=== PATIENT | male | born 1970 | race Caucasian/White ===

== ENCOUNTER 2017-08-09 16:15 | Emergency (ER) | payer SELFPAY ==
[2017-08-09 16:20] VITALS: TEMP 98; BMI 28.3
--- NOTE | 2017-08-09 16:29 | PDOC ---
History of Present Illness - General History Source: Patient Exam Limitations: No Limitations - History of Present Illness Initial Comments: 08/09/17 17:37 47 yo m with no PMHx presents for 3 days of non-reproducible chest and thoracic back pain. States pain is constant, not positional, nothing makes it better or worse and he has not tried any intervention. Reports having similar event last year where he was seen here in ED. 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 He denies any trauma, sob , diaphoresis, radiation of pain, fevers, chills, n/v/d/c. 08/09/17 18:03 Timing/Duration: other (3 days) Severity: mild Modifying Factors: worse with: movement, rest Associated Symptoms: reports: chest pain, weakness. denies: cough, diaphoresis , fever/chills, headaches, malaise, nausea/vomiting, shortness of breath <Ana Carbajal - Last Filed: 08/09/17 19:41> <Reva Rasmussen - Last Filed: 08/10/17 04:10> - General Chief Complaint: Chest Pain Stated Complaint: BLOOD PRESSURE Time Seen by Provider: 08/09/17 16:29 Past History - Travel Traveled outside of the country in the last 30 days: No Close contact w/someone who was outside of country & ill: No - Past Medical History COPD: No Other medical history: NONE - Suicide/Smoking/Psychosocial Hx Smoking History: Former smoker Have you smoked in the past 12 months: No If you are a former smoker, when did you quit?: 10 Information on smoking cessation initiated: No Hx Alcohol Use: No Drug/Substance Use Hx: No Substance Use Type: None <Ana Carbajal - Last Filed: 08/09/17 19:41> <Reva Rasmussen - Last Filed: 08/10/17 04:10> - Past Medical History Allergies/Adverse Reactions: Allergies Allergy/AdvReac Type Severity Reaction Status Date / Time No Known Allergies Allergy Verified 08/09/17 16:20 Home Medications: Ambulatory Orders NK [No Known Home Medication] 08/09/17 Review of Systems - Review of Systems Able to Perform ROS?: Yes Is the patient limited Faroese proficient: No Constitutional: Yes: Weakness. No: Chills, Diaphoresis, Fever, Loss of Appetite HEENTM: No: Blurred Vision, Recent change in vision Respiratory: No: Cough, Orthopnea, Shortness of Breath, SOB with Exertion, Wheezing, Productive cough Cardiac (ROS): Yes: Chest Pain. No: Irregular Heart Rate, Lightheadedness, Palpitations, Syncope ABD/GI: No: Abdominal Distended, Constipated, Diarrhea, Nausea, Vomiting Musculoskeletal: Yes: Back Pain, Neck Pain Neurological: Yes: Weakness (B/L hands). No: Headache, Numbness, Paresthesia, Tingling <Ana Carbajal - Last Filed: 08/09/17 19:41> *Physical Exam - Vital Signs Last Vital Signs Temp Pulse Resp BP Pulse Ox 98.0 F 90 20 136/87 99 08/09/17 16:16 08/09/17 16:16 08/09/17 16:16 08/09/17 16:16 08/09/17 16:16 - Physical Exam General Appearance: Yes: Nourished, Appropriately Dressed. No: Apparent Distress HEENT: positive: Normal ENT Inspection, Pharynx Normal. negative: Pharyngeal Erythema, Tonsillar Exudate, Tonsillar Erythema, Nasal Congestion, Rhinorrhea Neck: positive: Tender lateral. negative: Decreased range of motion, Tender midline Respiratory/Chest: positive: Lungs Clear, Normal Breath Sounds. negative: Chest Tender, Respiratory Distress, Accessory Muscle Use, Crackles, Rales, Stridor, Wheezing Cardiovascular: positive: Regular Rhythm, Regular Rate, S1, S2. negative: Edema Gastrointestinal/Abdominal: positive: Normal Bowel Sounds, Soft. negative: Tender, Tenderness Musculoskeletal: positive: Normal Inspection. negative: CVA Tenderness Extremity: positive: Normal Inspection, Normal Range of Motion Integumentary: positive: Normal Color, Warm Neurologic: positive: casting cleaner II-XII NML intact, Fully Oriented, Alert, Normal Mood/ Affect, Normal Response, Motor Strength 5/5 <Ana Carbajal - Last Filed: 08/09/17 19:41> - Vital Signs Last Vital Signs Temp Pulse Resp BP Pulse Ox 98.0 F 90 20 136/87 99 08/09/17 16:16 08/09/17 16:16 08/09/17 16:16 08/09/17 16:16 08/09/17 16:16 <Reva Rasmussen - Last Filed: 08/10/17 04:10> Heart Score/ECG Review - History History: Slightly suspicious - Electrocardiogram EKG: Normal - Risk Factors Risk Factors Heart Score: Yes Hx Hypercholesterolemia, Yes Smoking History Based on the list above the patient has:: 1-2 risk factors - Troponin Troponin: </= normal limit - ECG Intrepretation Rhythm: Regular Rhythm (nsr at 78 nl axis) Comment:: 08/09/17 18:05 nsr at 78 nl axis <Ana Carbajal - Last Filed: 08/09/17 19:41> ED Treatment Course - LABORATORY CBC & Chemistry Diagram: 08/09/17 17:00 08/09/17 17:00 <Ana Carbajal - Last Filed: 08/09/17 19:41> - LABORATORY CBC & Chemistry Diagram: 08/09/17 17:00 08/09/17 17:00 - ADDITIONAL ORDERS Additional order review: Laboratory Results 08/09/17 08/09/17 08/09/17 18:05 17:00 17:00 D-Dimer < 200 Sodium 138 Potassium 3.6 Chloride 104 Carbon Dioxide 27 Anion Gap 7 L BUN 18 D Creatinine 0.9 D Creat Clearance w eGFR > 60 Random Glucose 139 H D Calcium 8.9 Total Bilirubin 0.9 AST 23 D ALT 42 D Alkaline Phosphatase 80 D Creatine Kinase 111 Troponin I < 0.02 Total Protein 7.4 Albumin 3.9 08/09/17 17:00 RBC 4.96 MCV 82.3 MCHC 32.8 RDW 13.4 MPV 11.8 H Neutrophils % 69.0 Lymphocytes % 21.1 D Monocytes % 7.3 Eosinophils % 2.3 Basophils % 0.3 - Medications Given in the ED: ED Medications Discontinued Medications Generic Name Dose Route Start Last Admin Trade Name Freq PRN Reason Stop Dose Admin Albuterol/Ipratropium 1 amp 08/09/17 18:01 08/09/17 18:25 Duoneb - NEB 08/09/17 18:02 1 amp ONCE ONE Administration <Reva Rasmussen - Last Filed: 08/10/17 04:10> Medical Decision Making - Medical Decision Making 08/09/17 18:08 Pt with ac/o chest pain not typocal for chest pain Pt with similar event last year that responded to proventil inhaler, pt did not f/u with any providers. Pt quit smoking 10 yrs ago and drinking 3 yrs ago. Pt says he has a remote history of elevated cholesterol in the past not on meds. Pt has a negative troponin and nl ekg will add d-dimer to todays lab ,give combivent treatment and reevaluate. Pt may have some type of reactive airway disease, low suspicion for pulmonary embolism ,pt also c/o a lot of stress at work, symptoms may be related to stress. 08/09/17 19:42 Pt with nl labs , nl ekg pt says he is breathing normally after one breathing treatment, pt had similar experience in the past one year ago treated with breathing treatments for chest tightrness and discharged home but failed to f/u with pcp. PT also reports being checked for asthma 20 years ago but told he does not have asthma. Pt may have some type of reactive airway disease. PT is stable for dc home with out pt f/u with pcp , pt to use proventil inhaler prn for chest tightness, pt to return to ed for chest pain associated with nausea and vomiting or as needed. PT agreed with this dc plan, Case endorsed to Dr Rasmussen to make final disposition after d dimer results <Ana Carbajal - Last Filed: 08/09/17 19:41> - Medical Decision Making 08/10/17 04:09 I received pt on sinout. Workup is normal. Pt feels well. 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 Supports his and 3 sons. We had a log conversation and pt thinks that his pains are due to stress and emotional worries. Pt will follow with cardiology outpatient to r/o cardiac cause of illness. <Reva Rasmussen - Last Filed: 08/10/17 04:10> *DC/Admit/Observation/Transfer - Discharge Dispostion Admit: No <Ana Carbajal - Last Filed: 08/09/17 19:41> - Discharge Dispostion Admit: No <Reva Rasmussen - Last Filed: 08/10/17 04:10> Diagnosis at time of Disposition: Atypical chest pain - Discharge Dispostion Disposition: HOME Condition at time of disposition: Stable - Referrals Referrals: Rudi Tran MD [Staff Physician] - - Patient Instructions Printed Discharge Instructions: DI for Atypical Chest Pain - Post Discharge Activity Forms/Work/School Notes: Back to Work
[2017-08-09 17:16] LABS: BASOPHIL 0.3 % (0-2.0); EOSINOPHIL 2.3 % (0-4.5); MCHC 32.8 g/dl (32.0-35.9); MEAN CELL VOLUME 82.3 fl (80-96); MEAN PLT VOLUME 11.8 fl (7.5-11.1); PLATELET COUNT 135 K/MM3 (134-434); RDW 13.4 % (11.9-15.9); WHITE BLOOD COUNT 8.1 K/mm3 (4.0-10.0)
[2017-08-09 17:42] LABS: ALBUMIN 3.9 g/dl (3.4-5.0); ANION GAP 7 (8-16); BILIRUBIN,TOTAL 0.9 mg/dL (0.2-1.0); CALCIUM 8.9 mg/dL (8.5-10.1); CO2 27 mmol/L (21-32); CREATININE 0.9 mg/dL (0.7-1.3); GLUCOSE,RANDOM 139 mg/dL (74-106); SGOT/AST 23 U/L (15-37); SGPT/ALT 42 U/L (12-78); TOT PROT 7.4 g/dl (6.4-8.2)
[2017-08-09 17:43] LABS: ALK PHOS 80 U/L (45-117); CPK 111 IU/L (39-308); TROPONIN I < 0.02 ng/ml (0.00-0.05)
[2017-08-09] MEDS ORDERED: ALBUTEROL SO4 2.5/IPRATROPIUM 0.5 INH SOL 3 ML VIAL.NEB. NEB ONE ×2 (18:01→18:19)
[2017-08-09 19:57] VITALS: BP 120/65; PULSE 70
--- NOTE | 2017-08-11 09:53 | EKG ---
Test Reason : Blood Pressure : / mmHG Vent. Rate : 078 BPM Atrial Rate : 078 BPM P-R Int : 174 ms QRS Dur : 088 ms QT Int : 368 ms P-R-T Axes : 067 063 046 degrees QTc Int : 419 ms NORMAL SINUS RHYTHM NORMAL ECG WHEN COMPARED WITH ECG OF 30-MAY-2016 19:06, NO SIGNIFICANT CHANGE WAS FOUND Confirmed by PRETTY ROMO MD ([id number]) on 08/11/2017 9:53:09 AM Referred By: Confirmed By:PRETTY ROMO MD
== END 2017-08-09 19:57 | disposition home or self-care (01) ==
LOC: JER 16:15
PROC: 3E0F7GC Introduction of Other Therapeutic Substance into Respiratory Tract, Via Natural or Artificial Opening (ICD-10-PCS; principal; 2017-08-09)
DX: R07.89 Other chest pain (principal); Z56.3 Stressful work schedule; E78.00 Pure hypercholesterolemia, unspecified
CPT/HCPCS: 36415; 80053; 82550; 84484; 85025; 85379; 93005; 93010; 99283-25

== ENCOUNTER 2017-12-25 14:29 | Emergency (ER) | payer OTHER ==
--- NOTE | 2017-12-25 15:02 | PDOC ---
Rapid Medical Evaluation Chief Complaint: Pain Time Seen by Provider: 12/25/17 14:58 Medical Evaluation: Allergies Allergy/AdvReac Type Severity Reaction Status Date / Time No Known Allergies Allergy Verified 08/09/17 16:20 12/25/17 14:59 I have performed a brief in-person evaluation of this patient. The patient presents with a chief complaint of: low abdominal pain x 2 days, denies f/c/n/v/d, burning with urinationg Pertinent physical exam findings: well appearing I have ordered the following: ua/ucx/ct/gc The patient will proceed to the ED for further evaluation. Discharge Disposition - Diagnosis Suprapubic abdominal pain - Referrals - Patient Instructions - Post Discharge Activity
[2017-12-25 15:03] VITALS: BP 125/68; PULSE 71; TEMP 97.9; BMI 28.6
[2017-12-25 15:33] LABS: URINE APPEARANCE CLEAR; URINE BILIRUBIN NEGATIVE (<2.0 mg/dL); URINE BLOOD NEGATIVE (NEGATIVE); URINE COLOR STRAW; URINE GLUCOSE (UA) NEGATIVE (NEGATIVE); URINE KETONE NEGATIVE (NEGATIVE); URINE LEUK ESTERASE NEGATIVE (NEGATIVE); URINE NITRITE NEGATIVE (NEGATIVE); URINE PROTEIN NEGATIVE (NEGATIVE); URINE UROBILINOGEN NEGATIVE mg/dL (0.2-1.0)
--- NOTE | 2017-12-25 16:06 | PDOC ---
History of Present Illness - General Chief Complaint: Pain Stated Complaint: ABD PAIN Time Seen by Provider: 12/25/17 14:58 History Source: Patient Exam Limitations: No Limitations - History of Present Illness Travel History: No Initial Comments: 12/25/17 16:01 This is a 47-year-old male without significant past medical history presents to the emergency department with suprapubic pain for 3 days. Patient states he wakes up 2-3 times overnight over these past 3 days to void. He reports having occasional dysuria and a tingling at the urinary meatus after voiding. He denies any flank pain or perineal pain. Patient states she's been in a 20 year monogamous relationship and is having unprotected vaginal sex with his . He denies any rectal trauma or anal sex. He denies any fevers, chills, nausea, vomiting, diarrhea, hematuria, rectal bleeding. Past History - Past Medical History Allergies/Adverse Reactions: Allergies Allergy/AdvReac Type Severity Reaction Status Date / Time No Known Allergies Allergy Verified 12/25/17 15:03 Home Medications: Ambulatory Orders Ciprofloxacin [Cipro -] 500 mg PO Q12H #28 tablet 12/25/17 COPD: No Hypercholesterolemia: Yes - Suicide/Smoking/Psychosocial Hx Smoking History: Never smoked Have you smoked in the past 12 months: No If you are a former smoker, when did you quit?: 10 Information on smoking cessation initiated: No Hx Alcohol Use: No Drug/Substance Use Hx: No Substance Use Type: None Review of Systems - Review of Systems Able to Perform ROS?: Yes Constitutional: No: Symptoms Reported HEENTM: No: Symptoms Reported Respiratory: No: Symptoms reported Cardiac (ROS): No: Symptoms Reported ABD/GI: No: Symptoms Reported : Yes: See HPI Musculoskeletal: No: Symptoms Reported Integumentary: No: Symptoms Reported Neurological: No: Symptoms reported Endocrine: No: Symptoms Reported Hematologic/Lymphatic: No: Symptoms Reported *Physical Exam - Vital Signs Last Vital Signs Temp Pulse Resp BP Pulse Ox 97.9 F 71 18 125/68 100 12/25/17 14:58 12/25/17 14:58 12/25/17 14:58 12/25/17 14:58 12/25/17 14:58 - Physical Exam General Appearance: Yes: Appropriately Dressed. No: Apparent Distress HEENT: positive: Normal ENT Inspection Neck: positive: Trachea midline, Supple Respiratory/Chest: positive: Lungs Clear, Normal Breath Sounds. negative: Respiratory Distress, Accessory Muscle Use Cardiovascular: positive: Regular Rhythm, Regular Rate. negative: Murmur Gastrointestinal/Abdominal: positive: Normal Bowel Sounds, Soft. negative: Tender Male Genitalia: positive: normal genitalia, other (Prostate edema present. Normal rectal tone present). negative: testicular tenderness, testicular mass, epididymus tender, inguinal hernia, CVAT, hematuria Musculoskeletal: positive: Normal Inspection. negative: CVA Tenderness Extremity: positive: Normal Inspection, Normal Range of Motion Integumentary: positive: Normal Color, Dry, Warm Neurologic: positive: Alert, Normal Response, Motor Strength 5/5 ED Treatment Course - ADDITIONAL ORDERS Additional order review: Laboratory Results 12/25/17 15:20 Urine Color Straw Urine Appearance Clear Urine pH 6.0 Ur Specific [place] 1.006 Urine Protein Negative Urine Glucose (UA) Negative Urine Ketones Negative Urine Blood Negative Urine Nitrite Negative Urine Bilirubin Negative Urine Urobilinogen Negative Ur Leukocyte Esterase Negative Medical Decision Making - Medical Decision Making 12/25/17 16:03 A/P: 47 old male with 3 days of suprapubic pain and intermittent dysuria Suprapubic tenderness present. Uncircumcised penis without any balanitis present. No discharge from the urinary meatus present. Cremasteric reflex present bilaterally. No testicular erythema or tenderness present. No inguinal hernia present Prostate within normal size but slightly edematous. Acute prostatitis We'll treat with Cipro 500 mg twice a day for the next 14 days with urology follow-up if symptoms do not improve *DC/Admit/Observation/Transfer Diagnosis at time of Disposition: Prostatitis, acute - Discharge Dispostion Disposition: HOME Condition at time of disposition: Stable Admit: No - Prescriptions Prescriptions: Ciprofloxacin [Cipro -] 500 mg PO Q12H #28 tablet - Referrals Referrals: Bowen Huizar MD [Staff Physician] - - Patient Instructions Printed Discharge Instructions: DI for Acute Prostatitis Additional Instructions: You have been given a phone number for urologist. Please follow-up in the next 10 days if symptoms are not improved. Avoid eating spicy foods and alcohol until symptoms improve. Take Cipro 500 mg twice a day for the next 14 days. They should finish all of her medications even if you feel better. Take Tylenol or Motrin for fever and/or pain. Return to emergency department for fevers, worsening pain, burning with urination, penile discharge or any other concerns. - Post Discharge Activity
== END 2017-12-25 16:18 | disposition home or self-care (01) ==
LOC: JERFT 14:29
DX: N41.0 Acute prostatitis (principal); E78.00 Pure hypercholesterolemia, unspecified
CPT/HCPCS: 36415; 81003; 87086; 87491; 87591; 99281-25

== ENCOUNTER 2018-10-31 12:01 | Emergency (ER) | payer SELFPAY ==
[2018-10-31 12:05] VITALS: BP 134/75; PULSE 79; TEMP 97.9; BMI 28.3
[2018-10-31] MEDS ORDERED: MAG HYDROX/AL HYDROX/SIMETH 30 ML UNIT-DOSE CUP PO ONE (13:25)
[2018-10-31] MEDS ORDERED: RANITIDINE HCL 150 MG TABLET (FP) PO ONE (13:25)
[2018-10-31] MEDS ORDERED: RANITIDINE HCL 150 MG TABLET (FP) ONE (13:30)
[2018-10-31] MEDS ORDERED: MAG HYDROX/AL HYDROX/SIMETH 30 ML UNIT-DOSE CUP ONE (13:30)
--- NOTE | 2018-10-31 13:30 | PDOC ---
History of Present Illness - General Chief Complaint: Pain Stated Complaint: ABD PAIN Time Seen by Provider: 10/31/18 12:54 History Source: Patient - History of Present Illness Timing/Duration: reports: intermittent Past History - Past Medical History Allergies/Adverse Reactions: Allergies Allergy/AdvReac Type Severity Reaction Status Date / Time No Known Allergies Allergy Verified 10/31/18 12:05 Home Medications: Ambulatory Orders NK [No Known Home Medication] 10/31/18 COPD: No Hypercholesterolemia: Yes - Suicide/Smoking/Psychosocial Hx Smoking History: Never smoked Have you smoked in the past 12 months: No If you are a former smoker, when did you quit?: 10 Hx Alcohol Use: No Drug/Substance Use Hx: No Substance Use Type: None Review of Systems - Review of Systems Constitutional: No: Fever ABD/GI: No: Blood Streaked Bowels, Diarrhea, Nausea, Rectal Bleeding, Vomiting, Tarry Stools : No: Burning, Dysuria, Discharge, Flank Pain, Hematuria, Testicular Mass, Testicular Swelling, Testicular Pain *Physical Exam - Vital Signs Last Vital Signs Temp Pulse Resp BP Pulse Ox 97.9 F 79 18 134/75 99 10/31/18 12:02 10/31/18 12:02 10/31/18 12:02 10/31/18 12:02 10/31/18 12:02 - Physical Exam General Appearance: Yes: Appropriately Dressed. No: Apparent Distress HEENT: positive: Normal Voice Neck: positive: Supple Respiratory/Chest: negative: Respiratory Distress Gastrointestinal/Abdominal: positive: Normal Bowel Sounds, Soft. negative: Tender, Distended, Guarding, Rebound Musculoskeletal: negative: CVA Tenderness Integumentary: positive: Dry, Warm Neurologic: positive: Fully Oriented, Alert, Normal Mood/Affect Moderate Sedation - Procedure Monitoring Vital Signs: Procedure Monitoring Vital Signs Temperature 97.9 F 10/31/18 12:02 Pulse Rate 79 10/31/18 12:02 Respiratory Rate 18 10/31/18 12:02 Blood Pressure 134/75 10/31/18 12:02 O2 Sat by Pulse Oximetry (%) 99 10/31/18 12:02 ED Treatment Course - LABORATORY CBC & Chemistry Diagram: 10/31/18 13:35 10/31/18 13:35 Medical Decision Making - Medical Decision Making 10/31/18 13:21 48 yo male, no pmhx, here w/ intermittent, burning, mid lower abdominal pain with bloating 3 days. States symptoms since improved. No change in bowel movements, melena, BRBPR, dysuria, hematuria, discharge, testicular pain, swelling, nausea, vomiting, fever or chills. No history of similar episode See exam Possibly gastritis, no ttp on exam to suggest appy or diverticulitis, unlikely biliary source, pancreatitis, renal colic or aortic pathologyStable and well latoya w/ benign abd -trial of GI cocktail -labs -reassess 10/31/18 15:06 LFTs very mildly elevated including Tbili of 1.8. Patient has no known history of liver disease, etoh abuse and denies excessive tylenol use or recent travel. Ultrasound read as possible fatty liver with no gallstone or other acute pathology seen. Patient remains pain-free at this time and stable for discharge to follow-up with PMD *DC/Admit/Observation/Transfer Diagnosis at time of Disposition: Abdominal pain Qualifiers: Abdominal location: unspecified location Qualified Code(s): R10.9 - Unspecified abdominal pain - Discharge Dispostion Disposition: HOME Condition at time of disposition: Good - Referrals Referrals: Brian Munoz MD [Primary Care Provider] - - Patient Instructions Printed Discharge Instructions: DI for Abdominal Pain-Adult Additional Instructions: The cause of your abdominal pain is unclear at this time. Your labs and ultrasound were unremarkable. If symptoms worsen, return to ER Otherwise follow-up with your PMD - Post Discharge Activity
[2018-10-31 13:40] LABS: BASO % 0.4 % (0-2.0); EOS % 3.9 % (0-4.5); HEMATOCRIT 43.3 % (35.4-49); HEMOGLOBIN 14.9 GM/dL (11.7-16.9); LYMPH % 26.6 % (8-40); MCH 29.3 pg (25.7-33.7); MCHC 34.4 g/dl (32.0-35.9); MEAN CELL VOLUME 85.1 fl (80-96); MONO % 9.1 % (3.8-10.2); PLATELET COUNT 129 K/MM3 (134-434); RBC 5.09 M/mm3 (4.00-5.60); RDW 13.4 % (11.9-15.9); URINE APPEARANCE CLEAR; URINE BILIRUBIN NEGATIVE (<2.0 mg/dL); URINE COLOR YELLOW; URINE GLUCOSE (UA) NEGATIVE (NEGATIVE); URINE KETONE NEGATIVE (NEGATIVE); URINE LEUK ESTERASE NEGATIVE (NEGATIVE); URINE NITRITE NEGATIVE (NEGATIVE); URINE PROTEIN NEGATIVE (NEGATIVE); WHITE BLOOD COUNT 6.8 K/mm3 (4.0-10.0)
[2018-10-31 13:58] LABS: ALBUMIN 4.1 g/dl (3.4-5.0); ALK PHOS 80 U/L (45-117); ANION GAP 4 MMOL/L (8-16); BILIRUBIN,TOTAL 1.8 mg/dL (0.2-1); BLOOD UREA NITROGEN 16 mg/dL (7-18); CALCIUM 9.3 mg/dL (8.5-10.1); CHLORIDE 104 mmol/L (98-107); CO2 29 mmol/L (21-32); CREATININE 0.9 mg/dL (0.55-1.3); GLUCOSE,RANDOM 89 mg/dL (74-106); LIPASE 99 U/L (73-393); SGOT/AST 62 U/L (15-37); SGPT/ALT 94 U/L (13-61); SODIUM 137 mmol/L (136-145); TOT PROT 8.1 g/dl (6.4-8.2)
== END 2018-10-31 15:16 | disposition home or self-care (01) ==
LOC: JER 12:01
DX: R10.9 Unspecified abdominal pain (principal); E78.00 Pure hypercholesterolemia, unspecified
CPT/HCPCS: 36415; 76705-TC; 80053; 81003; 83690; 85025; 99282-25

== ENCOUNTER 2019-02-06 14:37 | Inpatient (IN) | payer OTHER ==
[2019-02-06 14:50] VITALS: BMI 27.4
[2019-02-06] MEDS ORDERED: MAG HYDROX/AL HYDROX/SIMETH 30 ML UNIT-DOSE CUP PO ONE (15:55)
[2019-02-06] MEDS ORDERED: ACETAMINOPHEN 1000 MG/100 ML VIAL (NON FORMULARY) IVPB ONE (15:55)
[2019-02-06] MEDS ORDERED: FAMOTIDINE 20 MG/50 ML IVPB 20 MG/50 ML MG IVPB ONE ×2 (15:57→16:10)
--- NOTE | 2019-02-06 16:02 | PDOC ---
History of Present Illness - General Chief Complaint: Pain, Acute Stated Complaint: ABD PAIN Time Seen by Provider: 02/06/19 15:18 History Source: Patient Exam Limitations: Clinical Condition - History of Present Illness Initial Comments: 02/06/19 15:41 Patient with no significant past medical history present with complaint of five- day history of persistent pruritic in right lower quadrant pain which he believes feels like gas pain. Patient reported intermittent bloating which improves when he passes gas or burps. Patient described pain as cramping pain to suprapubic region and right lower quadrant. Denies nausea, vomiting, diarrhea or constipation. he denies urinary frequency, dysuria or burning with urination. Denies testicular pain or swelling. Denies fever or chills. Denies any other symptoms Timing/Duration: other (5 days) Past History - Past Medical History Allergies/Adverse Reactions: Allergies Allergy/AdvReac Type Severity Reaction Status Date / Time No Known Allergies Allergy Verified 10/31/18 12:05 Home Medications: Ambulatory Orders Famotidine [Pepcid] 40 mg PO DAILY #7 tablet 02/06/19 Polyethylene Glycol 3350 [Miralax (For Daily Use) -] 17 gm PO DAILY #1 bottle Simethicone [Phazyme] 180 mg PO Q8H PRN #20 capsule 02/06/19 COPD: No Hypercholesterolemia: Yes - Immunization History Immunization Up to Date: No - Suicide/Smoking/Psychosocial Hx Smoking History: Never smoked Have you smoked in the past 12 months: No If you are a former smoker, when did you quit?: 10 Information on smoking cessation initiated: No Hx Alcohol Use: No Drug/Substance Use Hx: No Substance Use Type: None Review of Systems - Review of Systems Able to Perform ROS?: Yes Is the patient limited Sinhala proficient: No Constitutional: No: Chills, Fever, Malaise HEENTM: No: Symptoms Reported Respiratory: No: Symptoms reported Cardiac (ROS): No: Symptoms Reported ABD/GI: Yes: See HPI, Abdominal cramping (suprapbic and RLQ pain). No: Symptoms Reported, Abdominal Distended, Abd. Pain w/ defecation, Blood Streaked Bowels, Diarrhea, Difficulty Swallowing, Nausea, Poor Fluid Intake, Rectal Bleeding, Vomiting, Tarry Stools : No: Burning, Frequency, Urgency All Other Systems: Reviewed and Negative *Physical Exam - Vital Signs Last Vital Signs Temp Pulse Resp BP Pulse Ox 97.9 F 83 18 121/71 98 02/06/19 14:48 02/06/19 14:48 02/06/19 14:48 02/06/19 14:48 02/06/19 14:48 - Physical Exam Comments: 02/06/19 16:00 GENERAL: Well developed, well nourished. Awake and alert. No acute distress. HEENT: Normocephalic, atraumatic. PERRLA, EOMI. No conjunctival pallor. Sclera are non-icteric. Moist mucous membranes. Oropharynx is clear. NECK: Supple. Full ROM. CARDIOVASCULAR: Regular rate and rhythm. No murmurs, rubs, or gallops. Distal pulses are 2+ and symmetric. PULMONARY: No evidence of respiratory distress. Lungs clear to auscultation bilaterally. No wheezing, rales or rhonchi. ABDOMINAL: Soft. moderate TTP to RLQ and suprabic region. Non-distended. No rebound or guarding. No organomegaly. Normoactive bowel sounds. MUSCULOSKELETAL Normal range of motion at all joints. no CVAT. : no testiculat pain or swelling. no scrotal swelling. no hernia on exam SKIN: Warm and dry. Normal capillary refill. No rashes. No cyanosis. NEUROLOGICAL: Alert, awake, appropriate. Gait is normal without ataxia. PSYCHIATRIC: Cooperative. Good eye contact. Appropriate mood General Appearance: Yes: Nourished, Appropriately Dressed. No: Apparent Distress ED Treatment Course - LABORATORY CBC & Chemistry Diagram: 02/06/19 16:03 02/06/19 16:03 Medical Decision Making - Medical Decision Making 02/06/19 15:43 Patient with no significant past medical history present with complaint of five- day history of persistent pruritic in right lower quadrant pain which he believes feels like gas pain. Patient reported intermittent bloating which improves when he passes gas or burps. Patient described pain as cramping pain to suprapubic region and right lower quadrant. Denies nausea, vomiting, diarrhea or constipation. he denies urinary frequency, dysuria or burning with urination. Denies testicular pain or swelling. Denies fever or chills. Denies any other symptoms Exam significant for moderate tenderness to palpate to right lower quadrant with mild tenderness to suprapubic region without guarding or rebound. Negative Dick sign. Increased diffuse bowel sounds. Symptoms most likely gas pain versus appendicitis versus UTI. CBC, CMP and lipase labs ordered. Urine labs. IV Tylenol 1 g ordered for pain. Maalox 30 mL by mouth given for bloating. Abdominal pelvis with contrast ordered to rule out appendicitis. Treat based on lab and imaging results. 02/06/19 18:15 CBC unremarkable. chemistry shows elevated liver enzymes which is likely due to his h/o fatty liver otherwise normal chemistry. UA with no acute findings. abd CT done and pending reading 02/06/19 20:29 Patient signed out to night team [employer] Khari *DC/Admit/Observation/Transfer Diagnosis at time of Disposition: Appendicitis, acute Qualifiers: Acute appendicitis type: with localized peritonitis Appendicitis perforation presence: without perforation Appendicitis abscess presence: unspecified whether abscess present Abdominal pain Qualifiers: Abdominal location: right lower quadrant Qualified Code(s): R10.31 - Right lower quadrant pain - Discharge Dispostion Condition at time of disposition: Fair Decision to Admit order: No - Prescriptions Prescriptions: Famotidine [Pepcid] 40 mg PO DAILY #7 tablet Polyethylene Glycol 3350 [Miralax (For Daily Use) -] 17 gm PO DAILY #1 bottle Simethicone [Phazyme] 180 mg PO Q8H PRN #20 capsule PRN Reason: gas pain - Referrals Referrals: Darci Orozco MD [Staff Physician] - - Patient Instructions - Post Discharge Activity
[2019-02-06] MEDS ORDERED: ACETAMINOPHEN INJECTION 100 ML IVPB ONE (16:10)
[2019-02-06] MEDS ORDERED: MAG HYDROX/AL HYDROX/SIMETH 30 ML UNIT-DOSE CUP ONE (16:10)
[2019-02-06 16:29] LABS: BASO % 0.4 % (0-2.0); EOS % 2.5 % (0-4.5); HEMATOCRIT 41.9 % (35.4-49); HEMOGLOBIN 13.6 GM/dL (11.7-16.9); LYMPH % 26.4 % (8-40); MCH 27.6 pg (25.7-33.7); MCHC 32.5 g/dl (32.0-35.9); MEAN CELL VOLUME 85.1 fl (80-96); MEAN PLT VOLUME 11.5 fl (7.5-11.1); MONO % 11.4 % (3.8-10.2); NEUT % 59.3 % (42.8-82.8); PLATELET COUNT 154 K/MM3 (134-434); RBC 4.93 M/mm3 (4.00-5.60); RDW 13.1 % (11.9-15.9); WHITE BLOOD COUNT 8.4 K/mm3 (4.0-10.0)
[2019-02-06 16:49] LABS: ALBUMIN 4.2 g/dl (3.4-5.0); CALCIUM 9.4 mg/dL (8.5-10.1); CREATININE 0.9 mg/dL (0.55-1.3); POTASSIUM 3.9 mmol/L (3.5-5.1); TOT PROT 8.1 g/dl (6.4-8.2)
[2019-02-06 17:09] LABS: URINE APPEARANCE CLEAR; URINE BILIRUBIN NEGATIVE (NEGATIVE); URINE COLOR YELLOW; URINE GLUCOSE (UA) NEGATIVE (NEGATIVE); URINE KETONE NEGATIVE (NEGATIVE); URINE LEUK ESTERASE NEGATIVE (NEGATIVE); URINE NITRITE NEGATIVE (NEGATIVE); URINE PROTEIN NEGATIVE (NEGATIVE); URINE UROBILINOGEN 0.2 mg/dL (0.2-1.0)
[2019-02-06] MEDS ORDERED: CEFTRIAXONE 1,000 MG in DEXTROSE 5%-WATER - 50 ML IVPB ONE (20:07)
--- NOTE | 2019-02-06 20:09 | PDOC ---
*Physical Exam - Vital Signs Last Vital Signs Temp Pulse Resp BP Pulse Ox 97.0 F L 62 18 120/59 L 100 02/06/19 19:18 02/06/19 19:18 02/06/19 19:18 02/06/19 19:18 02/06/19 19:18 - Physical Exam General Appearance: Yes: Appropriately Dressed. No: Apparent Distress HEENT: positive: Normal ENT Inspection Neck: positive: Trachea midline, Supple Respiratory/Chest: positive: Lungs Clear, Normal Breath Sounds. negative: Respiratory Distress, Accessory Muscle Use Cardiovascular: positive: Regular Rhythm, Regular Rate. negative: Murmur Gastrointestinal/Abdominal: positive: Normal Bowel Sounds, Tender (RLQ), Soft Musculoskeletal: positive: Normal Inspection. negative: CVA Tenderness ED Treatment Course - LABORATORY CBC & Chemistry Diagram: 02/06/19 16:03 02/06/19 16:03 - ADDITIONAL ORDERS Additional order review: Laboratory Results 02/06/19 02/06/19 16:10 16:03 Sodium 136 Potassium 3.9 Chloride 103 Carbon Dioxide 28 Anion Gap 6 L BUN 18 Creatinine 0.9 Est GFR (CKD-EPI)AfAm 116.65 Est GFR (CKD-EPI)NonAf 100.64 Random Glucose 83 Calcium 9.4 Total Bilirubin 1.0 AST 62 H ALT 77 H Alkaline Phosphatase 90 Total Protein 8.1 Albumin 4.2 Lipase 100 Urine Color Yellow Urine Appearance Clear Urine pH 6.0 Ur Specific [place] 1.008 L Urine Protein Negative Urine Glucose (UA) Negative Urine Ketones Negative Urine Blood Negative Urine Nitrite Negative Urine Bilirubin Negative Urine Urobilinogen 0.2 Ur Leukocyte Esterase Negative 02/06/19 16:03 RBC 4.93 MCV 85.1 MCHC 32.5 RDW 13.1 MPV 11.5 H Neutrophils % 59.3 Lymphocytes % 26.4 Monocytes % 11.4 H Eosinophils % 2.5 Basophils % 0.4 - Medications Given in the ED: ED Medications Discontinued Medications Generic Name Dose Route Start Last Admin Trade Name Freq PRN Reason Stop Dose Admin Acetaminophen 1,000 mg 02/06/19 15:55 02/06/19 16:16 Ofirmev Injection - IVPB 02/06/19 15:56 1,000 mg ONCE ONE Administration Al Hydroxide/Mg Hydroxide 30 ml 02/06/19 15:55 02/06/19 16:16 Mylanta Oral Suspension - PO 02/06/19 15:56 30 ml ONCE ONE Administration Famotidine/Sodium Chloride 20 mg in 50 mls @ 100 mls/hr 02/06/19 15:57 16:16 Pepcid 20 Mg Premixed Ivpb - IVPB 02/06/19 16:26 100 mls/hr ONCE ONE Administration Progress Note - Progress Note Progress Note: Received signout from ROSARIO Santoro. Briefly this is a 49-year-old male without significant medical history who presented to the emergency department with five-day history of persistent pain in the right lower quadrant. Patient report intermittent bloating with relief of bloating after flatus. Reports the pain is a cramping sensation present in the right lower quadrants and suprapubic area. Laboratory testing is been unremarkable Patient reported relief of pain after GI cocktail CT scan is pending Medical Decision Making - Medical Decision Making 02/06/19 20:12 A/P: 49-year-old male with right lower quadrant pain for 5 days Laboratory testing is unremarkable CT as read by imaging iron melter: Transverse dimension of the appendix 1.1 cm with periappendiceal inflammation changes evident. No extraluminal air or abscess formation identified. No evidence of an appendicolith. The terminal ileum normal in appearance. No large or small bowel inflammatory changes evident. Findings have been discussed with the patient's who understands need for admission and surgery. Based on CT findings I contacted the [facility] speak with Dr. Thorpe for admission for appendicitis. Patient is nothing by mouth Regulation profile Type and screen Chest x-ray EKG Ceftriaxone 1 g IV now Normal saline at 125 mL an hour Flagyl 500 mg IV now 02/06/19 20:41 Case is been discussed with Dr. Lazaro who accepts pt to his service for admission. *DC/Admit/Observation/Transfer Diagnosis at time of Disposition: Appendicitis, acute Qualifiers: Acute appendicitis type: with localized peritonitis Appendicitis perforation presence: without perforation Appendicitis abscess presence: unspecified whether abscess present - Discharge Dispostion Condition at time of disposition: Fair Decision to Admit order: Yes - Prescriptions Prescriptions: Famotidine [Pepcid] 40 mg PO DAILY #7 tablet Polyethylene Glycol 3350 [Miralax (For Daily Use) -] 17 gm PO DAILY #1 bottle Simethicone [Phazyme] 180 mg PO Q8H PRN #20 capsule PRN Reason: gas pain - Referrals Referrals: Darci Orozco MD [Staff Physician] - - Patient Instructions - Post Discharge Activity
[2019-02-06] MEDS ORDERED: LACTATED RINGERS SOLUTION 1,000 ML/1,000 ML INFUS.BAG IV SCH (20:15)
[2019-02-06] MEDS ORDERED: CEFTRIAXONE 1 GM/50 ML BAG ONE (20:30)
[2019-02-06] MEDS: SODIUM CHLORIDE 1,000 ML IV SCH (20:38)
[2019-02-06 20:42] LABS: INR 0.99 (0.83-1.09); PROTHROMBIN TIME (PATIENT) 11.7 SEC (9.7-13.0)
--- NOTE | 2019-02-06 21:22 | HP ---
Admitting History and Physical - Admission Chief Complaint: abdominal pain History of Present Illness: 49 yo male no significant PMH present with complaint of five-day history of persistent pruritic in right lower quadrant pain which he believes feels like gas pain. Patient reported intermittent bloating which improves when he passes gas or burps. Patient described pain as cramping pain to suprapubic region and right lower quadrant. Denies nausea, vomiting, diarrhea or constipation. he denies urinary frequency, dysuria or burning with urination. Denies testicular pain or swelling. Denies fever or chills. Denies any other symptoms. we were asked to admit for surgery. History Source: Patient, Medical Record Limitations to Obtaining History: No Limitations - Smoking History Smoking history: Never smoked Have you smoked in the past 12 months: No If you are a former smoker, when did you quit?: 10 - Alcohol/Substance Use Hx Alcohol Use: No History of Substance Use: reports: None - Social History Usual Living Arrangement: Yes: Alone ADL: Independent History of Recent Travel: No Home Medications - Allergies Allergies/Adverse Reactions: Allergies Allergy/AdvReac Type Severity Reaction Status Date / Time No Known Allergies Allergy Verified 10/31/18 12:05 - Home Medications Home Medications: Ambulatory Orders Famotidine [Pepcid] 40 mg PO DAILY #7 tablet 02/06/19 Polyethylene Glycol 3350 [Miralax (For Daily Use) -] 17 gm PO DAILY #1 bottle Simethicone [Phazyme] 180 mg PO Q8H PRN #20 capsule 02/06/19 Review of Systems - Review of Systems Constitutional: denies: Chills, Fever Eyes: denies: Blind Spots, Recent Change in Vision HENT: denies: Difficult Swallowing, Toothache Neck: denies: Decreased ROM Cardiovascular: denies: Chest Pain, Palpitations Respiratory: denies: Cough, SOB Gastrointestinal: denies: Abdominal Pain, Constipation, Diarrhea Genitourinary: denies: Discharge, Dysuria Musculoskeletal: denies: Back Pain, Crepitus Integumentary: denies: Change in Color, Eczema, Wound Neurological: denies: Seizure, Syncope Endocrine: denies: Unexplained Weight Gain, Unexplained Weight Loss Hematology/Lymphatic: denies: Easily Bruised, Excessive Bleeding Psychiatric: denies: Anxiety, Depression Physical Examination Vital Signs: Vital Signs Temperature 97.0 F L 02/06/19 19:18 Pulse Rate 62 02/06/19 19:18 Respiratory Rate 18 02/06/19 19:18 Blood Pressure 120/59 L 02/06/19 19:18 O2 Sat by Pulse Oximetry (%) 98 02/06/19 20:40 Constitutional: Yes: Well Nourished, No Distress, Calm Eyes: Yes: WNL, Conjunctiva Clear, EOM Intact HENT: Yes: Atraumatic, Normocephalic Neck: Yes: Supple, Trachea Midline Cardiovascular: Yes: Regular Rate and Rhythm, S1, S2 Respiratory: Yes: Regular, CTA Bilaterally Gastrointestinal: Yes: Normal Bowel Sounds, Soft, Abdomen, Obese, Tenderness ( RLQ,), Tenderness, Rebound. No: Vomiting ...Rectal Exam: Yes: Deferred Renal/: No: CVA Tenderness - Left, CVA Tenderness - Right Musculoskeletal: No: Muscle Pain, Muscle Weakness Extremities: No: Cool, Cyanosis Edema: No Peripheral Pulses WNL: Yes Peripheral Pulses: Left Radial: 2+, Right Radial: 2+, Left Doralis Pedis: 2+, Right Dorsalis Pedis: 2+, Left Femoral: 2+, Right Femoral: 2+ Integumentary: No: Jaundice, Skin Tear, Tattoos Neurological: Yes: Alert, Oriented Psychiatric: Yes: Alert, Oriented Labs: CBC, BMP 02/06/19 16:03 02/06/19 16:03 Imaging - Results Cat Scan: Report Reviewed, Image Reviewed (inflamed appendix) Problem List - Problems (1) Appendicitis, acute Assessment/Plan: 49yo male with Acute appendicitis NPO and IVF hydration IV antibiotics Discussed with patient risks, benefits and alternatives of laparoscopic possible open ectomy, including but not limited to bleeding, infection, injury to adjacent structures, leak or injury, intraabdominal abscess, incisional hernia, need for further procedures, ; alternatives include antibiotics, delayed or no surgery - risks of this include failure of nonoperative therapy, perforation, sepsis, recurrence, . Patient desires to proceed with operation - will take to OR for above. Informed consent signed for same. Thank you for the opportunity to participate in the care of this patient. Code(s): K35.80 - UNSPECIFIED ACUTE APPENDICITIS Qualifiers: Acute appendicitis type: with localized peritonitis Appendicitis perforation presence: without perforation Appendicitis abscess presence: unspecified whether abscess present (2) Abdominal pain in male Code(s): R10.9 - UNSPECIFIED ABDOMINAL PAIN (3) Dehydration Code(s): E86.0 - DEHYDRATION (4) Atypical chest pain Code(s): R07.89 - OTHER CHEST PAIN
[2019-02-06] MEDS ORDERED: morphine SULFATE 4 MG/ML VIAL IVPUSH PRN (21:23)
[2019-02-07 07:06] LABS: BASO % 0.3 % (0-2.0); EOS % 2.2 % (0-4.5); HEMATOCRIT 39.8 % (35.4-49); HEMOGLOBIN 13.3 GM/dL (11.7-16.9); MCH 28.3 pg (25.7-33.7); MCHC 33.5 g/dl (32.0-35.9); MEAN CELL VOLUME 84.4 fl (80-96); MEAN PLT VOLUME 10.9 fl (7.5-11.1); NEUT % 64.5 % (42.8-82.8); PLATELET COUNT 156 K/MM3 (134-434); RBC 4.72 M/mm3 (4.00-5.60); RDW 13.5 % (11.9-15.9); WHITE BLOOD COUNT 7.4 K/mm3 (4.0-10.0)
[2019-02-07 08:23] LABS: INR 1.05 (0.83-1.09); PROTHROMBIN TIME (PATIENT) 12.4 SEC (9.7-13.0)
[2019-02-07] MEDS: SODIUM CHLORIDE 1,000 ML IV SCH ×2 (08:40→17:18)
--- NOTE | 2019-02-07 12:26 | EKG ---
Test Reason : Blood Pressure : / mmHG Vent. Rate : 086 BPM Atrial Rate : 086 BPM P-R Int : 184 ms QRS Dur : 094 ms QT Int : 380 ms P-R-T Axes : 058 051 021 degrees QTc Int : 454 ms NORMAL SINUS RHYTHM NORMAL ECG WHEN COMPARED WITH ECG OF 09-AUG-2017 16:22, NO SIGNIFICANT CHANGE WAS FOUND Confirmed by ELINA MCGUIRE MD ([id number]) on 02/07/2019 12:26:45 PM Referred By: Confirmed By:ELINA MCGUIRE MD
[2019-02-07] MEDS ORDERED: ONDANSETRON 4 MG/2 ML VIAL IVPUSH PRN (21:23)
[2019-02-08] MEDS: SODIUM CHLORIDE 1,000 ML IV SCH (01:37)
--- NOTE | 2019-02-08 10:01 | CON.CARD ---
Consult Consult Specialty:: Cardiology Referred by:: Dr. Lazaro Reason for Consultation:: Cardiac evaluation - History of Present Illness Chief Complaint: Right lower quadrant pain History of Present Illness: Patient is a 49 year old male of descent with no significant PMH who presents with right lower quadrant pain. Work up reveals acute appendicitis for which surgery is contemplated. He had complained of chest discomfort in the past , but did not have any cardiac work up in the past. Currently, he denies chest pain, SOB or palpitations. He denies paroxysmal nocturnal dyspnea or orthopnea. He denies fever or chills. He denies nausea, vomiting or diarrhea. He denies headache or lightheadedness. - History Source History Provided By: Patient, Medical Record Limitations to Obtaining History: No Limitations - Past Surgical History Past Surgical History: Yes: None - Alcohol/Substance Use Hx Alcohol Use: Yes (In the past) History of Substance Use: reports: None - Smoking History Smoking history: Never smoked Have you smoked in the past 12 months: No If you are a former smoker, when did you quit?: 10 Home Medications - Allergies Allergies/Adverse Reactions: Allergies Allergy/AdvReac Type Severity Reaction Status Date / Time No Known Allergies Allergy Verified 10/31/18 12:05 - Home Medications Home Medications: Ambulatory Orders Famotidine [Pepcid] 40 mg PO DAILY #7 tablet 02/06/19 Polyethylene Glycol 3350 [Miralax (For Daily Use) -] 17 gm PO DAILY #1 bottle Simethicone [Phazyme] 180 mg PO Q8H PRN #20 capsule 02/06/19 Family Disease History - Family Disease History Family Disease History: CA: Mother (Unknown) Review of Systems - Review of Systems Constitutional: denies: Chills, Fever Cardiovascular: reports: Chest Pain. denies: Palpitations, Shortness of Breath Respiratory: denies: Cough, Hemoptysis, Orthopnea, PND, SOB, SOB on Exertion Gastrointestinal: reports: Abdominal Pain, Bloating. denies: Constipation, Diarrhea, Melena, Nausea, Rectal Bleeding, Vomiting Genitourinary: denies: Dysuria, Hematuria Musculoskeletal: denies: Back Pain, Joint Pain Neurological: denies: Dizziness, Headache, Seizure, Syncope Vital Signs: Vital Signs Temperature 98.6 F 02/08/19 05:46 Pulse Rate 80 02/08/19 05:46 Respiratory Rate 18 02/08/19 05:46 Blood Pressure 116/70 02/08/19 05:46 O2 Sat by Pulse Oximetry (%) 98 02/07/19 22:00 Eyes: Yes: PERRL HENT: Yes: Atraumatic Neck: Yes: Supple Respiratory: Yes: CTA Bilaterally Gastrointestinal: Yes: Normal Bowel Sounds, Soft. No: Tenderness Cardiovascular: Yes: Regular Rate and Rhythm JVD: No Carotid Bruit: No PMI: Non-Displaced Heart Sounds: Yes: S1, S2 Murmur: No: Systolic Murmur, Diastolic Murmur Edema: No - Other Data Labs, Other Data: CBC, BMP 02/07/19 06:00 02/06/19 16:03 INR, PTT INR 1.05 (0.83-1.09) 02/07/19 06:00 Troponin, BNP 02/08/19 00:10 Troponin I < 0.02 Normal sinus rhythm with normal ECG Imaging - Results Chest X-ray: Report Reviewed Cat Scan: Report Reviewed (Abdominal CT acute appendicitis) EKG: Report Reviewed Problem List - Problems (1) Abdominal pain Code(s): R10.9 - UNSPECIFIED ABDOMINAL PAIN Qualifiers: Abdominal location: right lower quadrant Qualified Code(s): R10.31 - Right lower quadrant pain (2) Appendicitis, acute Code(s): K35.80 - UNSPECIFIED ACUTE APPENDICITIS Qualifiers: Acute appendicitis type: with localized peritonitis Appendicitis perforation presence: without perforation Appendicitis abscess presence: unspecified whether abscess present (3) Atypical chest pain Code(s): R07.89 - OTHER CHEST PAIN Assessment/Plan 1. Acute appendicitis 2. Atypical chest pain, currently asymptomatic PLAN: 1. No absolute contraindication for appendectomy in view of absence of ischemic symptoms, decompensated congestive heart failure or malignant arrhythmia. 2. No need for cardiac work up at this time prior to surgery, but it may be pursued as outpatient if clinically indicated 3. Surgery evaluation to follow Rudi Tran MD
[2019-02-08] MEDS ORDERED: PROMETHAZINE HCL 25 MG/1 ML VIAL IVPB PRN (10:24)
[2019-02-08] MEDS ORDERED: ONDANSETRON 4 MG/2 ML VIAL IVPUSH PRN ×2 (10:24→12:41)
[2019-02-08] MEDS ORDERED: MIDAZOLAM HCL 2 MG/2 ML SINGLE DOSE VIAL ONE (10:28)
[2019-02-08] MEDS ORDERED: PROPOFOL 20 ML ONE ×2 (10:28→11:09)
[2019-02-08] MEDS ORDERED: ROCURONIUM BROMIDE 50 MG/5 ML VIAL ONE (10:28)
[2019-02-08] MEDS ORDERED: LIDOCAINE HCL/PF 2% SDV 5ML VIAL ONE (10:29)
[2019-02-08] MEDS ORDERED: LACTATED RINGERS SOLUTION 1,000 ML IV SCH (10:30)
[2019-02-08] MEDS ORDERED: BUPIVACAINE HCL/PF 0.5% (5MG/ML) 10 ML VIAL ONE (10:33)
[2019-02-08] MEDS ORDERED: BENZOIN TINCTURE SWABSTICK TP ONE (10:34)
--- NOTE | 2019-02-08 10:44 | OP ---
Operative Note - Note: Operative Date: 02/08/19 Pre-Operative Diagnosis: Acute Appendicitis Operation: Laparoscopic Appendectomy Findings: inflamed appendix Post-Operative Diagnosis: Same as Pre-op Surgeon: Brian Lazaro Anesthesiologist/TRANSFER PUMPER: Jovanny Montgomery Anesthesia: General, Local Specimens Removed: appendix Estimated Blood Loss (mls): 2 Drains, Volume Out (mls): 200 (delgado removed) Fluid Volume Replaced (mls): 300 Operative Report Dictated: Yes
--- NOTE | 2019-02-08 11:02 | EKG ---
Test Reason : Blood Pressure : / mmHG Vent. Rate : 071 BPM Atrial Rate : 071 BPM P-R Int : 172 ms QRS Dur : 088 ms QT Int : 394 ms P-R-T Axes : 055 034 016 degrees QTc Int : 428 ms NORMAL SINUS RHYTHM NORMAL ECG WHEN COMPARED WITH ECG OF 06-FEB-2019 21:42, NO SIGNIFICANT CHANGE WAS FOUND Confirmed by CHUCK CUI MD ([id number]) on 02/08/2019 11:02:04 AM Referred By: Confirmed By:CHUCK CUI MD
[2019-02-08] MEDS ORDERED: ceFAZolin SODIUM 1 GM VIAL ONE (11:25)
[2019-02-08] MEDS ORDERED: ceFAZolin SODIUM 1 GM VIAL IVPB ONE (11:25)
[2019-02-08] MEDS ORDERED: SODIUM CHLORIDE 0.9% P/F 10 ML VIAL IJ ONE (11:25)
[2019-02-08] MEDS ORDERED: DEXAMETHASONE SOD PHOSPHATE 4 MG/1 ML VIAL ONE (11:28)
[2019-02-08] MEDS ORDERED: ONDANSETRON 4 MG/2 ML VIAL ONE (11:28)
[2019-02-08] MEDS ORDERED: BUPIVACAINE HCL/PF (5 MG/ML) 30 ML VIAL IJ ONE (11:28)
[2019-02-08] MEDS ORDERED: KETOROLAC TROMETHAMINE 30 MG/1 ML VIAL ONE (11:44)
[2019-02-08] MEDS ORDERED: GLYCOPYRROLATE 0.2 MG/1 ML VIAL ONE (11:48)
[2019-02-08] MEDS ORDERED: NEOSTIGMINE METHYLSULFATE 0.5 MG/1 ML - 10 ML MDV ONE (11:48)
[2019-02-08] MEDS ORDERED: morphine SULFATE 4 MG/ML VIAL IVPUSH PRN (12:41)
[2019-02-08 14:41] VITALS: PULSE 77
[2019-02-08 14:43] VITALS: BP 105/63; TEMP 98.2
--- NOTE | 2019-02-08 18:09 | DS ---
Physical Examination Vital Signs: Vital Signs Temperature 98.2 F 02/08/19 14:25 Pulse Rate 77 02/08/19 14:25 Respiratory Rate 13 02/08/19 14:25 Blood Pressure 105/63 02/08/19 14:25 O2 Sat by Pulse Oximetry (%) 98 02/08/19 14:00 Findings/Remarks: tolerating diet pain is well controlled Constitutional: Yes: Well Nourished, No Distress, Calm Eyes: Yes: Conjunctiva Clear, EOM Intact HENT: Yes: Atraumatic, Normocephalic Neck: Yes: Supple, Trachea Midline Cardiovascular: Yes: Regular Rate and Rhythm, S1, S2 Respiratory: Yes: Regular, CTA Bilaterally Gastrointestinal: No: Normal Bowel Sounds, Soft ...Rectal Exam: Yes: Deferred, Guaiac Positive Renal/: No: CVA Tenderness - Left, CVA Tenderness - Right Breast(s): No: Nipple Inversion, Skin Changes Musculoskeletal: No: Muscle Pain, Muscle Weakness Extremities: No: Cool, Cyanosis Edema: No Peripheral Pulses WNL: Yes Peripheral Pulses: Left Radial: 2+, Right Radial: 2+, Left Doralis Pedis: 2+, Right Dorsalis Pedis: 2+, Left Femoral: 2+, Right Femoral: 2+ Integumentary: No: Jaundice, Rash, Skin Tear Wound/Incision: Yes: Clean/Dry, Well Approximated, Dressing Dry and Intact Neurological: Yes: Alert, Oriented Psychiatric: Yes: Alert, Oriented Labs: CBC, BMP 02/07/19 06:00 02/06/19 16:03 Discharge Summary Reason For Visit: ACUTE APPENDICITIS Current Active Problems Abdominal pain (Acute) Abdominal pain in male (Acute) Appendicitis, acute (Acute) Dehydration (Acute) Procedures: Principal: acute appendicitis with localized peritonitis Other Procedures: laparoscopic appendectomy Hospital Course: admitted for an ambulatory procedure. uneventful surgery. stable for discharge home. Condition: Good - Instructions Diet, Activity, Other Instructions: Postoperative instructions: You had a laparoscopic appendectomy on 02/08/[address] Brian Lazaro of [facility]. Activity: Resume your usual activities gradually, but no heavy exertion or lifting more than 10-15 pounds for 1 month. Remove dressings 48 hours after surgery; sticky tapes underneath will fall off by themselves. You may shower daily starting then, just pat the incision areas dry. No bath or swimming until skin incisions have healed. Eat lightly at first, but advance to your usual diet as tolerated. Pain: For pain, you may use and alternate Tylenol (acetaminophen) 1-2 pills and/ or ibuprofen 200 mg (1-3 pills) every 6 hours each as needed; this means that you can take one OR the other at 3-hour intervals. If you are prescribed a Tylenol/narcotic combination for severe pain, use it instead of plain Tylenol as needed and switch back when your pain starts decreasing. Do not take more than 4000mg of acetaminophen in a day. Take medications as prescribed or indicated on the labeling. Follow-up: Call Dr. Lazaro' office at [phone] to make your postop appointment (Friday in approximately 2 weeks after surgery). Clinic is held in the [facility] on the first floor of [facility]. Call the office if you have: * increasing pain not responsive to pain medication * fever of 101F or higher * vomiting * unusual or increasing bleeding or drainage from wounds * increasing redness or swelling at wound sites * inability to urinate Also, see your primary medical doctor within 1-2 weeks. Disposition: HOME - Home Medications Comprehensive Discharge Medication List: Ambulatory Orders Famotidine [Pepcid] 40 mg PO DAILY #7 tablet 02/06/19 Polyethylene Glycol 3350 [Miralax (For Daily Use) -] 17 gm PO DAILY #1 bottle Simethicone [Phazyme] 180 mg PO Q8H PRN #20 capsule 02/06/19 Amox-Tr/K Cl [Augmentin - 875Mg Tablet] 1 tab PO BID #14 tablet 02/08/19 Oxycodone HCl/Acetaminophen [Percocet 5/325 -] 1 tab PO Q6H 5 Days #40 tab MDD 5 02/08/19
--- NOTE | 2019-02-10 17:39 | PATH ---
Surgical Pathology Report Patient Name: SRIKANTH ESPARZA [facility]. Rec. #: [id number] /Age/Gender: 1970 (Age: 49) / M Account: [id number] Location: [address] [place] [address]/[facility] Taken: 02/08/2019 Received: 02/08/2019 Reported: 02/10/2019 Physicians: Brian Lazaro M.D. Specimen(s) Received APPENDIX Clinical History Acute appendicitis Final Diagnosis APPENDIX, LAPAROSCOPIC APPENDECTOMY: ACUTE APPENDICITIS AND PERIAPPENDICITIS. Electronically Signed Taryn Sanford M.D. Gross Description Received in formalin, labeled "appendix" is an 11.2 x 1.2 cm appendix with attached periappendiceal adipose tissue. The distal half of the appendix appears markedly indurated. No perforations or discontinuations of the wall are noted. Upon opening, the lumen is distended with brown and de la rosa soft material. Mortgage Loan Coordinator sections are submitted in one cassette. AE/02/09/2019 ebram/02/09/2019
--- NOTE | 2019-02-11 14:13 | OP ---
DATE OF OPERATION: 02/08/2019 PREOPERATIVE DIAGNOSIS: Acute appendicitis with localized peritonitis. POSTOPERATIVE DIAGNOSIS: Acute appendicitis with localized peritonitis. PROCEDURE: Laparoscopic appendectomy. ATTENDING SURGEON: Brian Lazaro MD FINAL RAIL CUTTER: No one. ANESTHESIA: Jovanny Montgomery MD ANESTHESIA TYPE: General with local. Local consisted of 0.5% Marcaine, a total of 10 mL given in the area in block site at the port site. ESTIMATED BLOOD LOSS: 2 mL IV FLUID ADMINISTERED: 300 mL. Wisdom output was 200 mL clear urine, which was removed postoperatively. SPECIMEN: Appendix. FINDINGS: Appendix appeared inflamed grossly. Staple closure at the cecum was achieved. INDICATIONS: The patient is a 49-year-old male presenting with right lower quadrant abdominal pain for 2 days. Counseled regarding the risks, benefits, alternatives to surgical appendectomy. Signed informed consent and was taken for the procedure. DESCRIPTION OF PROCEDURE: The patient was brought to the operating room. Placed in supine position on the operating room table. Lower extremities had SCDs placed for compression. The patient was induced with general anesthesia, endotracheally intubated. The patient then had the anterior abdominal wall prepped and draped in standard surgical fashion after clipping. A formal time-out was then completed identifying the operative site and procedure. We began first with infraumbilical Pedrito approach entry into the abdomen. It was incised with a 15-blade scalpel, deepened and widened through subcutaneous tissue to the midline fascia below the umbilicus. After the fascia was identified, it was scored and then elevated into the wound with Piper clamps and then a blunt entry was made into the abdomen elevating the abdominal wall. A 12-mm Pedrito trocar was then installed into abdomen. A pneumoperitoneum was established to 15 mmHg at which point I began 1st with an exploration of the entry site, which appeared atraumatic. Additional port sites in the supraumbilical position in the midline as well as in the left lower quadrant at the anterior superior iliac spine was placed at which point we began then to explore the area of the cecum. The cecum was identified, and the appendix was immediately identified and appeared inflamed. It was grabbed in its body, and a plane was developed between the appendix and the mesoappendix at the base of the cecum. After resetting the camera to the 5-mm operating port, Endo MIGUEL A 45-mm purple load was then used to fire a staple line across the base of the appendix at the cecum at the termination of the taenia coli, which confirmed its anatomic position. We then proceeded with LigaSure debridement of the mesoappendix, and once the appendix was free, we then retrieved the appendix from the umbilical port using an EndoCatch bag 10 mm. With the appendix removed, additional check was made for hemostasis and obtained using LigaSure at which point we then suctioned a small amount of purulent exudate and bloody effluent at which point we then removed the trocars under direct visualization and relieved the pneumoperitoneum where the appendix was passed off the field for pathologic diagnosis and confirmation. The port sites were then closed, the figure of eight at the umbilicus, which was laid in preoperatively with a 0 Vicryl, was closed to ablate the Pedrito entry and then additional skin closures were made in subcuticular fashion using 4-0 Vicryl. This was done in running fashion at the umbilicus and then interrupted fashion at the additional 5-mm ports. Sterile dressings were placed. The patient was awoken from general anesthesia having tolerated procedure well, was extubated in the operating room. All counts were correct. MD IAN Mckee/[id number]
== END 2019-02-08 19:07 | disposition home or self-care (01) | DRG 225 ==
LOC: JER 14:37 → JERBED 20:41 → J6S 22:53
PROC: 0DTJ4ZZ Resection of Appendix, Percutaneous Endoscopic Approach (ICD-10-PCS; principal; 2019-02-08 12:30)
DX: K35.80 Unspecified acute appendicitis (principal); R07.89 Other chest pain; R10.31 Right lower quadrant pain; E86.0 Dehydration; E66.9 Obesity, unspecified; Z68.27 Body mass index [BMI] 27.0-27.9, adult; K76.0 Fatty (change of) liver, not elsewhere classified
CPT/HCPCS: 36415; 71046-TC-FY; 74177-TC; 80053; 81003; 83690; 84484; 85025; 85027; 85610; 86850; 86900; 86901; 87086; 88304-TC; 93005; 93010; 94760; 99285-25; J0131; J7030

== ENCOUNTER 2019-07-22 13:45 | Emergency (ER) | payer OTHER ==
[2019-07-22 13:55] VITALS: BP 120/78; PULSE 78; TEMP 98.8; BMI 33.2
--- NOTE | 2019-07-22 14:06 | PDOC ---
History of Present Illness - General Chief Complaint: Urinary Problem Stated Complaint: UTI/ACID REFLUX Time Seen by Provider: 07/22/19 13:53 History Source: Patient - History of Present Illness Initial Comments: 07/22/19 14:41 Chief complaint: Penile pain Patient is a 49-year-old male with no significant medical history, had his appendix removed prior and has on and off pinches in his penis. Sometimes with urinating. Patient has no fever, no back pain, no nausea or vomiting. Patient has no pain now. Patient denies any discharge. Patient states he only has sex with his . GENERAL/CONSTITUTIONAL: No fever, weakness. dizziness HEAD, EYES, EARS, NOSE AND THROAT: No change in vision. No ear pain or discharge. No sore throat. CARDIOVASCULAR: No chest pain RESPIRATORY: No shortness of breath or cough GASTROINTESTINAL: No pain, nausea, vomiting, diarrhea or constipation GENITOURINARY: + dysuria, + penile pain MUSCULOSKELETAL: No neck or back pain SKIN: No rash NEUROLOGIC: No headache, vertigo, loss of consciousness, or loss of sensation. GENERAL: The patient is awake, alert, and fully oriented, in no acute distress. HEAD: Normal with no signs of trauma. EYES: Pupils equal, round and reactive to light, sclera anicteric, conjunctiva clear. ENT: pharynx: no erythema, no exudate, uvula midline NECK: supple CHEST: clear, nontender, rr ABD: soft, nontender Genitals: Circumcised, no swelling to the foreskin, able to easily retract and bring forward, no discharge, erythema, no testicular pain, erythema or tenderness. No lymphadenopathy. BACK: no tenderness or signs of injury EXTREMITIES: Normal range of motion, no edema. NEUROLOGICAL: Normal speech, normal gait. SKIN: Warm, Dry Past History - Past Medical History Allergies/Adverse Reactions: Allergies Allergy/AdvReac Type Severity Reaction Status Date / Time No Known Allergies Allergy Verified 07/22/19 13:59 Home Medications: Ambulatory Orders Famotidine [Pepcid] 40 mg PO DAILY #7 tablet 02/06/19 Polyethylene Glycol 3350 [Miralax (For Daily Use) -] 17 gm PO DAILY #1 bottle Simethicone [Phazyme] 180 mg PO Q8H PRN #20 capsule 02/06/19 Amox-Tr/K Cl [Augmentin - 875Mg Tablet] 1 tab PO BID #14 tablet 02/08/19 Oxycodone HCl/Acetaminophen [Percocet 5/325 -] 1 tab PO Q6H 5 Days #40 tab MDD 5 02/08/19 COPD: No Hypercholesterolemia: Yes - Immunization History Immunization Up to Date: No - Psycho Social/Smoking Cessation Hx Smoking History: Never smoked Have you smoked in the past 12 months: No If you are a former smoker, when did you quit?: 10 Information on smoking cessation initiated: No Hx Alcohol Use: No Drug/Substance Use Hx: No Substance Use Type: None *Physical Exam - Vital Signs Last Vital Signs Temp Pulse Resp BP Pulse Ox 98.8 F 78 18 120/78 99 07/22/19 13:52 07/22/19 13:52 07/22/19 13:52 07/22/19 13:52 07/22/19 13:52 Medical Decision Making - Medical Decision Making 07/22/19 14:43 49-year-old male, well-appearing, asymptomatic right now with on and off penile pain and dysuria. Patient has no fever or abdominal pain. Patient did have back pain, but that was more at the end of a long workday when he went home and after take a shower, would never get unexpected balance of flank pain. No indication for labs, imaging will check urine. Patient states he is monogamous but will check STDs, patient will be referred to urology patient does not have a primary doctor, we had a conversation how patient needs to have a primary care doctor to have certain things checked before they become problems. UA is negative, will have patient follow-up with urologist for further evaluation, it was explained to patient that he needs to have regular prostate exams also Discussed issues, findings, results, applicable medications and treatments and follow-up. All these were understood and all questions were answered 07/22/19 15:32 Discharge - Discharge Information Problems reviewed: Yes Clinical Impression/Diagnosis: Penile pain Condition: Stable - Admission No - Additional Discharge Information Prescription Drug Monitoring Program (I-STOP) results: I-STOP not reviewed - Follow up/Referral - Patient Discharge Instructions Additional Instructions: It is very important for you to follow-up with a urologist for full evaluation of your symptoms. And also to check your prostate. You also need to have a regular doctor for regular exams. And screenings. For your problem with eating, you can try [id number] remedies for gas and reflux. You can try Gas-X and see if that helps otherwise you can follow-up and have it further evaluated by a doctor in the office Return to the ER if fever, vomiting or severe pain - Post Discharge Activity
[2019-07-22 14:41] LABS: PH,URINE 6.5 (5.0-8.0); URINE APPEARANCE CLEAR; URINE BILIRUBIN NEGATIVE (NEGATIVE); URINE COLOR YELLOW; URINE GLUCOSE (UA) NEGATIVE (NEGATIVE); URINE KETONE NEGATIVE (NEGATIVE); URINE LEUK ESTERASE NEGATIVE (NEGATIVE); URINE NITRITE NEGATIVE (NEGATIVE); URINE PROTEIN NEGATIVE (NEGATIVE); URINE UROBILINOGEN 0.2 mg/dL (0.2-1.0)
== END 2019-07-22 15:38 | disposition home or self-care (01) ==
LOC: JERFT 13:45
DX: N48.89 Other specified disorders of penis (principal); K21.9 Gastro-esophageal reflux disease without esophagitis; E78.00 Pure hypercholesterolemia, unspecified
CPT/HCPCS: 36415; 81003; 87086; 87491; 87591; 87661; 99282-25

== ENCOUNTER 2020-05-21 23:05 | Emergency (ER) | payer OTHER ==
[2020-05-21 23:16] VITALS: TEMP 97.9; BMI 27.9
--- NOTE | 2020-05-21 23:31 | PDOC ---
History of Present Illness - General Chief Complaint: Urinary Problem Stated Complaint: DYSURIA Time Seen by Provider: 05/21/20 23:29 - History of Present Illness Initial Comments: 05/21/20 23:31 HPI 50y/o M presenting with 4 days of dysuria and suprapubic discomfort. Pt reports burning when he urinates and increased urinary frequency. denies: testicular pain, penile discharge, multiple sexual partners, fevers, chills, nausea, vomiting, flank pain, hematuria endores: suprapubic pain/discomfort. PMHx: as noted above ROS: as noted SHx: Denies Etoh, IVDA, tobacco use Allergies: NKDA ROS: GENERAL/CONSTITUTIONAL: No fever or chills. No weakness. HEAD, EYES, EARS, NOSE AND THROAT: No change in vision. No ear pain or discharge. No sore throat. CARDIOVASCULAR: No chest pain or shortness of breath RESPIRATORY: No cough, wheezing, or hemoptysis. GASTROINTESTINAL: +heartburn. GENITOURINARY: No dysuria, frequency, or change in urination. MUSCULOSKELETAL: No joint or muscle swelling or pain. No neck or back pain. SKIN: No rash NEUROLOGIC: No headache, vertigo, loss of consciousness, or change in strength/sensation. ENDOCRINE: No increased thirst. No abnormal weight change HEMATOLOGIC/LYMPHATIC: No anemia, easy bleeding, or history of blood clots. ALLERGIC/IMMUNOLOGIC: No hives or skin allergy. PE: GENERAL: Awake, alert, and fully oriented, in no acute distress HEAD: No signs of trauma, normocephalic, atraumatic EYES: PERRLA, EOMI, sclera anicteric, conjunctiva clear ENT: Auricles normal inspection, hearing grossly normal, nares patent, oropharynx clear without exudates. Moist mucosa NECK: Normal ROM, supple, no lymphadenopathy, JVD, or masses LUNGS: No distress, speaks full sentences, clear to auscultation bilaterally HEART: Regular rate and rhythm, normal S1 and S2, no murmurs, rubs or gallops, peripheral pulses normal and equal bilaterally. ABDOMEN: Soft, nontender, normoactive bowel sounds. No guarding, no rebound. No masses EXTREMITIES : Normal inspection, Normal range of motion, no edema. No clubbing or cyanosis NEUROLOGICAL: Cranial nerves II through XII grossly intact. Normal speech, normal gait, no focal sensorimotor deficits SKIN: Warm, Dry, normal turgor, no rashes or lesions noted MDM DDx including but not limited to: uti/cystitis, less likely prostatitis, pyelonephritis. Workup: UA and urine culture. ED course negative UA however pt with clinical uti symptoms will treat with bactrim outpatient. Past History - Medical History Home Medications: Ambulatory Orders Famotidine [Pepcid] 40 mg PO DAILY #7 tablet 02/06/19 Polyethylene Glycol 3350 [Miralax (For Daily Use) -] 17 gm PO DAILY #1 bottle 02/06/19 Simethicone [Phazyme] 180 mg PO Q8H PRN #20 capsule 02/06/19 Amox-Tr/K Cl [Augmentin - 875Mg Tablet] 1 tab PO BID #14 tablet 02/08/19 Oxycodone HCl/Acetaminophen [Percocet 5/325 -] 1 tab PO Q6H 5 Days #40 tab MDD 5 02/08/19 Sulfamethoxazole/Trimethoprim [Bactrim Ds -] 1 tab PO BID #14 tablet 05/22/20 COPD: No Hypercholesterolemia: Yes - Immunization History Immunization Up to Date: No - Psycho-Social/Smoking History Smoking History: Never smoked Have you smoked in the past 12 months: No If you are a former smoker, when did you quit?: 10 - Substance Abuse Hx (Audit-C & DAST Scrn) How often the patient has a drink containing alcohol: 4 0r more times/wk Number of drinks the patient has on a typical day: 3 or 4 How often the patient has six or more drinks on one occasion: Daily or almost daily Score: In Men: 4 or > Positive; In Women: 3 or > Positive: 9 Screen Result (Pos requires Nsg. Audit-10AR): Positive In the last yr the pt used illegal drug/Rx for NonMed reason: No Score: Yes response is considered Positive: 0 Screen Result (Positive result requires Nsg. DAST-10): Negative *Physical Exam - Vital Signs Last Vital Signs Temp Pulse Resp BP Pulse Ox 97.9 F 92 H 18 151/74 100 05/21/20 23:09 05/21/20 23:09 05/21/20 23:09 05/21/20 23:09 05/21/20 23:09 Discharge - Discharge Information Problems reviewed: Yes Clinical Impression/Diagnosis: UTI (urinary tract infection) Condition: Stable Disposition: HOME - Additional Discharge Information Prescriptions: Sulfamethoxazole/Trimethoprim [Bactrim Ds -] 1 tab PO BID #14 tablet - Follow up/Referral - Patient Discharge Instructions Patient Printed Discharge Instructions: DI for Urinary Tract Infection (UTI) Additional Instructions: UTI Discharge: HOME CARE INSTRUCTIONS - you were prescribed antibiotics, take them exactly as your caregiver instructs you. Finish the medication even if you feel better! Drink enough water and fluids to keep your urine clear or pale yellow. Avoid caffeine, tea, and carbonated beverages - these can irritate your bladder. Empty your bladder often. Avoid holding urine for long periods of time. Empty your bladder before and after sexual intercourse. After a bowel movement, women should cleanse from front to back. Use each tissue only once. SEEK MEDICAL CARE IF: You have back pain. You develop a fever. Your symptoms do not begin to resolve within 3 days. SEEK IMMEDIATE MEDICAL CARE IF: You have severe back pain or lower abdominal pain. You develop chills. You have nausea or vomiting. You have continued burning or discomfort with urination. - Post Discharge Activity
--- NOTE | 2020-05-21 23:42 | PDOC ---
Documentation entered by Paloma Fall SCRIBE, acting as scribe for Darya Wiseman MD. Darya Wiseman MD: This documentation has been prepared by the Grisel perez Sydney, SCRIBE, under my direction and personally reviewed by me in its entirety. I confirm that the documentation accurately reflects all work, treatment, procedures, and medical decision making performed by me. Attending Attestation - Resident Resident Name: Kay Mishra - ED Attending Attestation I have performed the following: I have examined & evaluated the patient, The case was reviewed & discussed with the resident, I agree w/resident's findings & plan, Exceptions are as noted - HPI HPI: 05/21/20 23:40 pt has c/o burning when urinating 50 yo male has c/o burning with urination head ncat neck supple lungs cta b/l cvs [id number] abdomen nontender extremities no edema skin warm and dry neuro axox3,ambulatory 05/22/20 01:56 - Physicial Exam PE: 05/22/20 01:56 50 yo male has c/o burning with urination head ncat neck supple lungs cta b/l cvs [id number] abdomen nontender extremities no edema skin warm and dry neuro axox3,ambulatory 05/22/20 01:56 - Medical Decision Making 05/22/20 00:40 pt DENIES fever,chills,back pain,abdominal pain UA negative for infection glucose 123 05/22/20 00:58 pt d/c home 05/22/20 00:59 Discharge - Discharge Information Problems reviewed: Yes Clinical Impression/Diagnosis: UTI (urinary tract infection) Condition: Stable Disposition: HOME - Additional Discharge Information Prescriptions: Sulfamethoxazole/Trimethoprim [Bactrim Ds -] 1 tab PO BID #14 tablet - Follow up/Referral - Patient Discharge Instructions Patient Printed Discharge Instructions: DI for Urinary Tract Infection (UTI) Additional Instructions: UTI Discharge: HOME CARE INSTRUCTIONS - you were prescribed antibiotics, take them exactly as your caregiver instructs you. Finish the medication even if you feel better! Drink enough water and fluids to keep your urine clear or pale yellow. Avoid caffeine, tea, and carbonated beverages - these can irritate your bladder. Empty your bladder often. Avoid holding urine for long periods of time. Empty your bladder before and after sexual intercourse. After a bowel movement, women should cleanse from front to back. Use each tissue only once. SEEK MEDICAL CARE IF: You have back pain. You develop a fever. Your symptoms do not begin to resolve within 3 days. SEEK IMMEDIATE MEDICAL CARE IF: You have severe back pain or lower abdominal pain. You develop chills. You have nausea or vomiting. You have continued burning or discomfort with urination. - Post Discharge Activity
[2020-05-22 00:31] LABS: PH,URINE 6.5 (5.0-8.0); URINE APPEARANCE CLEAR; URINE BILIRUBIN NEGATIVE (NEGATIVE); URINE COLOR YELLOW; URINE GLUCOSE (UA) NEGATIVE (NEGATIVE); URINE KETONE NEGATIVE (NEGATIVE); URINE LEUK ESTERASE NEGATIVE (NEGATIVE); URINE NITRITE NEGATIVE (NEGATIVE); URINE PROTEIN NEGATIVE (NEGATIVE); URINE UROBILINOGEN 0.2 mg/dL (0.2-1.0)
[2020-05-22 01:34] VITALS: BP 139/93; PULSE 76
== END 2020-05-22 01:21 | disposition home or self-care (01) ==
LOC: JER 23:05
DX: N39.0 Urinary tract infection, site not specified (principal)
CPT/HCPCS: 81003; 82962; 87086; 99282-25

== ENCOUNTER 2020-06-05 17:52 | Emergency (ER) | payer OTHER ==
[2020-06-05] MEDS ORDERED: IBUPROFEN 600 MG TABLET (FP) PO ONE (18:15)
--- NOTE | 2020-06-05 18:15 | PDOC ---
Rapid Medical Evaluation Time Seen by Provider: 06/05/20 18:12 Medical Evaluation: 06/05/20 18:13 I performed a brief in-person evaluation of this patient. Pt is a 50 y/o male who presents to the ED with complaint of R knee pain after a fall hitting his knee in the corner of something. He states his R knee is hurting him. He denies any past medical history or allergies to medicine. Pertinent physical exam findings: R knee decreased ROM, normal gait I have ordered the following: R knee xray, motrin Patient to proceed to ED for further evaluation. Discharge Disposition - Diagnosis Right knee pain - Referrals - Patient Instructions - Post Discharge Activity
[2020-06-05 18:21] VITALS: BP 135/74; PULSE 68; TEMP 98.4; BMI 28.3
--- OUTSIDE RECORDS SUMMARY | 2020-06-05 18:43 | XMS ---
:1970 Author Organization [facility] Support Name Relationship Address Phone BRONWYN HOLGUIN Unavailable [address] [place] [address] SRIKANTH MCINTOSH SON [address] [phone] [place] [address] SRIKANTH MCINTOSH Child [address] [place] [address] Re-disclosure Warning The records that you are about to access may contain information from federally- assisted alcohol or drug abuse programs. If such information is present, then the following federally mandated warning applies: This information has been disclosed to you from records protected by federal confidentiality rules (42 CFR part 2). The federal rules prohibit you from making any further disclosure of this information unless further disclosure is expressly permitted by the written consent of the person to whom it pertains or as otherwise permitted by 42 CFR part 2. A general authorization for the release of medical or other information is NOT sufficient for this purpose. The Federal rules restrict any use of the information to criminally investigate or prosecute any alcohol or drug abuse patient.The records that you are about to access may contain highly sensitive health information, the redisclosure of which is protected by Article 27-F of the [facility] Public Health law. If you continue you may haveaccess to information: Regarding HIV / AIDS; Provided by facilities licensed or operated by the [facility] Office of Mental Health; or Provided by the [facility] Office for People With Developmental Disabilities. If such information is present, then the following [facility] mandated warning applies: This information has been disclosed to you from confidential records which are protected by state law. State law prohibits you from making any further disclosure of this information without the specific written consent of the person to whom it pertains, or as otherwise permitted by law. Any unauthorized further disclosure in violation of state law may result in a fine or shelter sentence or both. A general authorization for the release of medical or other information is NOT sufficient authorization for further disclosure. Insurance Providers Payer name Policy type Policy ID Covered Covered libertarian's Policy P carri / Coverage libertarian ID relationship to [place] [employer] orm[employer] type [place] MEDICAID [id number] SP [id number] SELF PAY SP INSURANCE
--- NOTE | 2020-06-05 19:36 | PDOC ---
History of Present Illness - General Chief Complaint: Injury Stated Complaint: FALL-PAIN Time Seen by Provider: 06/05/20 18:12 - History of Present Illness Initial Comments: 06/05/20 19:34 50-year-old male without comorbidities presents for evaluation of right knee pain. Patient states he was walking misstepped fell backwards in the process injuring his knee on the way down. He points to the anterior lateral aspect of the right knee as the area of his discomfort. No prior problems with the right knee. He also states the pain radiates down his leg Past History - Medical History Allergies/Adverse Reactions: Allergies Allergy/AdvReac Type Severity Reaction Status Date / Time No Known Allergies Allergy Verified 06/05/20 18:41 Home Medications: Ambulatory Orders Famotidine [Pepcid] 40 mg PO DAILY #7 tablet 02/06/19 Polyethylene Glycol 3350 [Miralax (For Daily Use) -] 17 gm PO DAILY #1 bottle 02/06/19 Simethicone [Phazyme] 180 mg PO Q8H PRN #20 capsule 02/06/19 Amox-Tr/K Cl [Augmentin - 875Mg Tablet] 1 tab PO BID #14 tablet 02/08/19 Oxycodone HCl/Acetaminophen [Percocet 5/325 -] 1 tab PO Q6H 5 Days #40 tab MDD 5 02/08/19 Sulfamethoxazole/Trimethoprim [Bactrim Ds -] 1 tab PO BID #14 tablet 05/22/20 COPD: No Hypercholesterolemia: Yes - Immunization History Immunization Up to Date: No - Psycho-Social/Smoking History Smoking History: Never smoked Have you smoked in the past 12 months: No If you are a former smoker, when did you quit?: 10 - Substance Abuse Hx (Audit-C & DAST Scrn) How often the patient has a drink containing alcohol: Never Score: In Men: 4 or > Positive; In Women: 3 or > Positive: 0 Screen Result (Pos requires Nsg. Audit-10AR): Negative In the last yr the pt used illegal drug/Rx for NonMed reason: No Score: Yes response is considered Positive: 0 Screen Result (Positive result requires Nsg. DAST-10): Negative Review of Systems - Review of Systems Musculoskeletal: Yes: Joint Pain *Physical Exam - Vital Signs Last Vital Signs Temp Pulse Resp BP Pulse Ox 98.4 F 68 18 135/74 100 06/05/20 18:13 06/05/20 18:13 06/05/20 18:13 06/05/20 18:13 06/05/20 18:13 - Physical Exam 06/05/20 19:34 Right knee skin color and temperature normal range of motion is full and nonpainful. Extensor mechanism is intact. Mild posterior lateral and anterior lateral joint line tenderness. No instability or gross sensorimotor deficits mild tenderness around the peroneal's. Proximal fibula and along its distal course and nontender nontender ankle full range of motion of the ankle and hip neurovascular intact negative straight leg raise test. ED Treatment Course - Medications Given in the ED: ED Medications Discontinued Medications Generic Name Dose Route Start Last Admin Trade Name Freq PRN Reason Stop Dose Admin Ibuprofen 600 mg 06/05/20 18:15 06/05/20 19:17 Motrin - PO 06/05/20 18:16 600 mg ONCE ONE Administration Medical Decision Making - Medical Decision Making 06/05/20 19:35 X-rays of the right knee show no evidence of fracture trauma or destructive process. Fibula is nontender. I suspect a peroneal strain. Lateral meniscal tear possible as well. We will have patient follow-up with orthopedic surgery weight-bear as tolerated on crutches Tylenol and Motrin for pain I have reviewed the pathophysiology with the patient. They are in agreement with the treatment plan all questions were answered to their satisfaction. Understanding for follow-up without fail was also conveyed to the patient. Again they are in agreement. Discharge - Discharge Information Problems reviewed: Yes Clinical Impression/Diagnosis: Right knee pain Condition: Stable Disposition: HOME - Admission No - Follow up/Referral Referrals: Travis Savage DO [Staff Physician] - - Patient Discharge Instructions Additional Instructions: You may weight-bear as tolerated with crutches. Return to the emergency room for worsening symptoms. Tylenol and Motrin as directed for pain. Without fail follow-up with orthopedic surgery in 2 to 3 days for further evaluation and treatment options. - Post Discharge Activity
== END 2020-06-05 19:48 | disposition home or self-care (01) ==
LOC: JERFT 17:52
DX: M25.561 Pain in right knee (principal)
CPT/HCPCS: 73562-TC-RT-FY; 99283-25

== ENCOUNTER 2020-10-18 10:03 | Emergency (ER) | payer OTHER ==
[2020-10-18 10:14] VITALS: BP 132/56; PULSE 67; TEMP 98; BMI 28.3
[2020-10-18] MEDS ORDERED: KETOROLAC TROMETHAMINE 60 MG/2 ML VIAL IM ONE (10:59)
[2020-10-18] MEDS ORDERED: CYCLOBENZAPRINE HCL 10 MG TABLET (FP) PO ONE (11:00)
[2020-10-18] MEDS ORDERED: KETOROLAC TROMETHAMINE 60 MG/2 ML VIAL ONE (11:15)
[2020-10-18] MEDS ORDERED: CYCLOBENZAPRINE HCL 10 MG TABLET (FP) ONE (11:15)
== END 2020-10-18 11:37 | disposition home or self-care (01) ==
LOC: JER 10:03 → JERFT 10:03
PROC: 3E0233Z Introduction of Anti-inflammatory into Muscle, Percutaneous Approach (ICD-10-PCS; principal; 2020-10-18)
DX: S39.012A Strain of muscle, fascia and tendon of lower back, initial encounter (principal)
CPT/HCPCS: 99284-25

== ENCOUNTER 2021-03-25 15:29 | Emergency (ER) | payer OTHER ==
[2021-03-25 15:38] VITALS: BP 146/68; PULSE 85; TEMP 98.1; BMI 29.4
[2021-03-25 16:18] LABS: PH,URINE 6.5 (5.0-8.0); URINE APPEARANCE Clear; URINE BILIRUBIN Negative (NEGATIVE); URINE COLOR Yellow; URINE GLUCOSE (UA) Negative (NEGATIVE); URINE KETONE Negative (NEGATIVE); URINE LEUK ESTERASE Negative (NEGATIVE); URINE NITRITE Negative (NEGATIVE); URINE PROTEIN Negative (NEGATIVE); URINE UROBILINOGEN 0.2 mg/dL (0.2-1.0)
== END 2021-03-25 17:08 | disposition home or self-care (01) ==
LOC: JER 15:29 → JERFT 15:29
DX: R30.0 Dysuria (principal)
CPT/HCPCS: 36415; 81003; 87086; 87491; 87591; 99283-25

== ENCOUNTER 2021-11-29 22:51 | Emergency (ER) | payer OTHER ==
[2021-11-29 22:58] VITALS: BP 115/77; PULSE 79; TEMP 98.4; BMI 29.6
[2021-11-29] MEDS ORDERED: DICYCLOMINE HCL 20 MG TABLET PO ONE (23:31)
[2021-11-29] MEDS ORDERED: SODIUM CHLORIDE 1,000 ML IV STA (23:31)
[2021-11-29] MEDS ORDERED: PANTOPRAZOLE SODIUM 40 MG VIAL IVPB ONE (23:31)
[2021-11-29] MEDS ORDERED: ACETAMINOPHEN 1000 MG/100 ML BAG IVPB ONE (23:31)
[2021-11-29] MEDS ORDERED: ONDANSETRON 4 MG/2 ML VIAL IVPUSH ONE (23:31)
[2021-11-29] MEDS ORDERED: MAG HYDROX/AL HYDROX/SIMETH 30 ML UNIT-DOSE CUP PO ONE (23:33)
[2021-11-29] MEDS ORDERED: DICYCLOMINE HCL 10 MG CAPSULE ONE (23:50)
[2021-11-29] MEDS ORDERED: MAG HYDROX/AL HYDROX/SIMETH 30 ML UNIT-DOSE CUP ONE (23:51)
[2021-11-29] MEDS ORDERED: ONDANSETRON 4 MG/2 ML VIAL ONE (23:51)
[2021-11-29] MEDS ORDERED: PANTOPRAZOLE SODIUM 40 MG VIAL ONE (23:51)
[2021-11-29] MEDS ORDERED: ACETAMINOPHEN INJECTION 100 ML IVPB ONE (23:51)
[2021-11-30 00:32] LABS: BASO % 0.3 % (0-2.0); EOS % 6.2 % (0-4.5); HEMATOCRIT 42.7 % (35.4-49); HEMOGLOBIN 14.3 GM/dL (11.7-16.9); LYMPH % 28.2 % (8-40); MCHC 33.5 g/dl (32.0-35.9); MEAN CELL VOLUME 83.6 fl (80-96); MEAN PLT VOLUME 10.2 fl (7.5-11.1); MONO % 13.2 % (3.8-10.2); NEUT % 52.1 % (42.8-82.8); PH,URINE 6.5 (5.0-8.0); PLATELET COUNT 120 10^3/uL (134-434); RBC 5.11 M/mm3 (4.00-5.60); RDW 13.2 % (11.9-15.9); URINE APPEARANCE CLEAR; URINE BILIRUBIN NEGATIVE (NEGATIVE); URINE COLOR YELLOW; URINE GLUCOSE (UA) NEGATIVE (NEGATIVE); URINE KETONE NEGATIVE (NEGATIVE); URINE LEUK ESTERASE NEGATIVE (NEGATIVE); URINE NITRITE NEGATIVE (NEGATIVE); URINE PROTEIN NEGATIVE (NEGATIVE); WHITE BLOOD COUNT 4.1 K/mm3 (4.0-10.0)
[2021-11-30 00:43] LABS: INR 1.07 (0.83-1.09); PROTHROMBIN TIME (PATIENT) 12.3 SEC (9.7-13.0)
[2021-11-30 00:46] LABS: ACTIVATED PTT 31.6 SECONDS (25.2-36.5)
[2021-11-30 00:53] LABS: ALBUMIN 3.9 g/dl (3.4-5.0); CALCIUM 8.7 mg/dL (8.5-10.1)
[2021-11-30 00:54] LABS: BLOOD UREA NITROGEN 9.6 mg/dL (7-18); MAGNESIUM 2.2 mg/dL (1.8-2.4)
[2021-11-30 00:56] LABS: CREATININE 0.7 mg/dL (0.55-1.3)
[2021-11-30 00:57] LABS: PHOSPHOROUS 2.5 mg/dL (2.5-4.9)
[2021-11-30 00:58] LABS: BILIRUBIN,TOTAL 0.9 mg/dL (0.2-1); TOT PROT 7.6 g/dl (6.4-8.2)
== END 2021-11-30 03:39 | disposition home or self-care (01) ==
LOC: JER 22:51
PROC: 3E0333Z Introduction of Anti-inflammatory into Peripheral Vein, Percutaneous Approach (ICD-10-PCS; principal; 2021-11-29)
PROC: 3E033GC Introduction of Other Therapeutic Substance into Peripheral Vein, Percutaneous Approach (ICD-10-PCS; 2021-11-29)
PROC: 3E033GC Introduction of Other Therapeutic Substance into Peripheral Vein, Percutaneous Approach (ICD-10-PCS; 2021-11-29)
PROC: 3E0337Z Introduction of Electrolytic and Water Balance Substance into Peripheral Vein, Percutaneous Approach (ICD-10-PCS; 2021-11-29)
DX: R10.9 Unspecified abdominal pain (principal)
CPT/HCPCS: 36415; 76705-TC; 80053; 81003; 82140; 83690; 83735; 84100; 84484; 85025; 85610; 85730; 93005; 93010; 99285-25

== ENCOUNTER 2022-10-01 13:14 | Emergency (ER) | payer OTHER ==
[2022-10-01 13:26] VITALS: BP 149/80; PULSE 90; RESP 20; TEMP 98; BMI 29.7
[2022-10-01] MEDS ORDERED: ACETAMINOPHEN 500 MG TABLET (FP) PO ONE (15:26)
[2022-10-01] MEDS ORDERED: IBUPROFEN 400 MG TABLET (FP) PO ONE ×2 (15:26→16:35)
[2022-10-01] MEDS ORDERED: LIDOCAINE 5% TOPICAL PATCH TP ONE (15:27)
[2022-10-01] MEDS ORDERED: ACETAMINOPHEN 325 MG TABLET (FP) ONE (16:35)
[2022-10-01] MEDS ORDERED: LIDOCAINE 5% TOPICAL PATCH ONE (16:36)
[2022-10-01 16:57] LABS: PH,URINE 6.5 (5.0-8.0); URINE APPEARANCE CLEAR; URINE BILIRUBIN NEGATIVE (NEGATIVE); URINE COLOR YELLOW; URINE GLUCOSE (UA) NEGATIVE (NEGATIVE); URINE KETONE NEGATIVE (NEGATIVE); URINE LEUK ESTERASE NEGATIVE (NEGATIVE); URINE NITRITE NEGATIVE (NEGATIVE); URINE PROTEIN NEGATIVE (NEGATIVE); URINE UROBILINOGEN 0.2 mg/dL (0.2-1.0)
[2022-10-01] MEDS ORDERED: LIDOCAINE PATCH REMOVAL MC SCH (22:00)
== END 2022-10-01 17:43 | disposition home or self-care (01) ==
LOC: JER 13:14
DX: R10.32 Left lower quadrant pain (principal); M54.50 Low back pain, unspecified
CPT/HCPCS: 81003; 87086; 99283-25

== ENCOUNTER 2024-07-27 03:28 | Emergency (ER) | payer OTHER ==
[2024-07-27 03:37] VITALS: BP 136/76; PULSE 73; RESP 18; TEMP 98.4; BMI 27.4
== END 2024-07-27 04:44 | disposition home or self-care (01) ==
LOC: JER 03:28
PROC: 3E023GC Introduction of Other Therapeutic Substance into Muscle, Percutaneous Approach (ICD-10-PCS; principal; 2024-07-27)
DX: R21 Rash and other nonspecific skin eruption (principal); B02.9 Zoster without complications
CPT/HCPCS: 99284-25

== ENCOUNTER 2025-02-22 16:39 | Emergency (ER) | payer OTHER ==
[2025-02-22 16:52] VITALS: BP 134/71; PULSE 74; RESP 20; TEMP 98.7; BMI 28.3
[2025-02-22] MEDS ORDERED: AMOX TR/POT CLAV 875MG/125MG TABLETS (FP) ONE (17:53)
[2025-02-22] MEDS ORDERED: IBUPROFEN 600 MG TABLET (FP) PO ONE (17:53)
[2025-02-22] MEDS: AMOX TR/POT CLAV 875MG/125MG TABLETS (FP) PO ONE (18:07)
[2025-02-22] MEDS: IBUPROFEN 600 MG TABLET (FP) PO ONE (18:07)
== END 2025-02-22 18:19 | disposition home or self-care (01) ==
LOC: JERFT 16:39
DX: R22.0 Localized swelling, mass and lump, head (principal); K04.7 Periapical abscess without sinus; K08.89 Other specified disorders of teeth and supporting structures; G89.29 Other chronic pain
CPT/HCPCS: 99283-25